=== PATIENT | female | born 1985 | race Caucasian/White ===

== ENCOUNTER 2020-03-06 00:13 | Emergency (ER) | payer BC, OTHER ==
[~2020-03-06] VITALS: Ht 177.8 cm; Wt 59.0 kg
[~2020-03-06 00:13] MED LIST: CLINDAMYCIN HC300 MG ORAL; IBUPROFEN800 MG ORAL
[2020-03-06 00:30] VITALS: BP 110/70
--- NOTE | 2020-03-06 00:30 | NUR ---
ED Nurse Note: Pt ambulated to ED from home c/o abcess in R groin and rash/red bumps on lower legs. Pt with sores on neck, arms and legs. Pt is A&Ox4, VSS. Pt is hyperactive and resistent to care. ERMD at bedside
[2020-03-06] MEDS ORDERED: DiphenhydrAMINE 50mg/ml Inj IVP ONE (00:45)
[2020-03-06] MEDS ORDERED: Vancomycin 1 GM in NS 275 ML IVPB ONE (00:45)
[2020-03-06 01:00] VITALS: BP 110/70
--- NOTE | 2020-03-06 01:00 | NUR ---
Kvng dawson in ED - 03/06/20 at 0205 by KDEARING ELOPEMENT: see incident report.
--- NOTE | 2020-03-06 01:04 | Emergency Room Report ---
History of Present Illness General Chief Complaint: Skin Rash/Abscess Source: Patient Present Illness HPI Patient is a 34-year-old female who presents to the ER complaining of abscess to her right groin. She states that it was present for about a week and she drained it earlier today with hydrogen peroxide. She states that her last tetanus shot was less than 5 years ago. She denies any fever or chills. Stewart wallace also complains of a rash to her bilateral lower extremities. She states that it appeared today after putting hydrogen peroxide on her legs but told the triage nurse that it been there for a week. Patient is a very poor historian. Patient complains of right ankle swelling but cannot recall any injury. Patient denies any chest pain or shortness of breath. Patient states that she is homeless currently. Allergies: Coded Allergies: No Known Allergies (Unverified , 07/05/15) COVID-19 Screening Contact w/high risk pt: No Experienced COVID-19 symptoms?: No COVID-19 Testing performed POLICE DEPARTMENT SECRETARY: No Patient History Last Menstrual Period: unk Now: No : 4 Para: 1 Reviewed Nursing Documentation: PMH: Agreed; PSxH: Agreed Nursing Documentation-PMH Past Medical History: No Stated History Review of Systems All Other Systems: negative except mentioned in HPI Physical Exam Vital Signs Date Time Temp Pulse Resp B/P (MAP) Pulse Ox O2 Delivery O2 Flow Rate FiO2 03/06/20 00:13 98.8 103 24 110/70 (83) 96 Room Air Sp02 EP Interpretation: reviewed, normal General Appearance: no apparent distress, alert, GCS 15, non-toxic Head: normocephalic, atraumatic Eyes: bilateral eye normal inspection, bilateral eye PERRL ENT: hearing grossly normal, normal pharynx, no angioedema, normal voice Neck: full range of motion, supple/symm/no masses Respiratory: chest non-tender, lungs clear, normal breath sounds, speaking full sentences Cardiovascular #1: tachycardia Gastrointestinal: normal bowel sounds, non tender, soft, non-distended, no guarding, no rebound Rectal: deferred Genitourinary: other - Chaperoned with SOURAV Erickson, right inguinal spontaneously draining absence with no surrounding cellulitis right inguinal lymphadenopathy Musculoskeletal: other - Right ankle diffuse swelling and tenderness bilateral lower extremity swelling right greater than left Neurologic: external grinder tool III-XII nml as tested, oriented x3 Psychiatric: other - Tangential thought process poor historian Skin: other - Bilateral lower extremity below the knee dry plaques with excoriations Medical Decision Making Homeless Attestation I, The treating physician Dr. Phillips, have assessed and agrees that patient is medically stable for discharge to an outpatient disposition. Diagnostic Impression: Primary Impression: Inguinal abscess Additional Impressions: Dermatitis Ankle pain, right ER Course Patient refusing any IV medications, IV placement or any blood work. Patient eloped prior to any treatment. Last Vital Signs Date Time Temp Pulse Resp B/P (MAP) Pulse Ox O2 Delivery O2 Flow Rate FiO2 03/06/20 00:13 98.8 103 24 110/70 (83) 96 Room Air Disposition: ELOPED Condition: Unknown Referrals: NOT CHOSEN IPA/,REFERRING (PCP) Rocio Phillips M.D. Mar 06, 2020 01:04
--- NOTE | 2020-03-06 01:08 | NUR ---
ED Nurse Note: xray and US at bedside
--- NOTE | 2020-03-06 01:08 | NUR ---
ED Nurse Note: Pt refused IV, ERMD aware
[2020-03-06] MEDS ORDERED: Clindamycin 150mg cap ORAL SCH (01:15)
--- NOTE | 2020-03-06 01:30 | NUR ---
ELOPEMENT: see incident report
== END 2020-03-06 01:30 | disposition left against medical advice (07) ==
LOC: EMR 00:42
DX: L02.214 Cutaneous abscess of groin (principal); L30.9 Dermatitis, unspecified; M25.571 Pain in right ankle and joints of right foot; L03.314 Cellulitis of groin; R00.0 Tachycardia, unspecified
CPT/HCPCS: 96365; 96375; J3370; J7050; Z7502; 99284